=== PATIENT | male | born 1975 | race African-American/Black ===

== ENCOUNTER 2017-12-28 11:56 | Emergency (ER) | payer BC ==
[~2017-12-28] VITALS: Ht 180.3 cm; Wt 97.7 kg
[~2017-12-28 11:56] MED LIST: ANTIVERT25 MG PO
[2017-12-28] MEDS ORDERED: PERCOCET 5/31 TABLET PO (13:50)
[2017-12-28] MEDS ORDERED: MOTRIN800 MG PO (13:50)
[2017-12-28 15:13] VITALS: BP 126/89
== END 2017-12-28 15:48 | disposition home or self-care (01) ==
LOC: EME 11:56
DX: S93.601A Unspecified sprain of right foot, initial encounter (principal); X50.9XXA Other and unspecified overexertion or strenuous movements or postures, initial encounter; Y93.56 Activity, jumping rope
CPT/HCPCS: 73630; 99281; 99284